=== PATIENT | male | born 1995 | race Caucasian/White ===

== ENCOUNTER 2020-04-28 20:33 | Inpatient (IN) | payer BC, OTHER ==
[2020-04-28 20:43] LABS: Glucose,Whole Blood 216 mg/dL (75-99)
[2020-04-28] MEDS ORDERED: SODIUM CHLORIDE 0.9% 1,000 ML IV STA (20:48)
--- NOTE | 2020-04-28 20:52 | ED ---
Recheck HPI - General Chief Complaint: Recheck/Abnormal Lab/Rx Stated Complaint: Diabetic,High Ketones Time Seen by Provider: 04/28/20 20:47 Source: patient, family Mode of arrival: wheelchair Limitations: no limitations - History of Present Illness Initial Comments: Patient is a 24-year-old poorly controlled type I diabetic presents emergency Department with a chief complaint of ketones in the urine. Patient states over the past 2 years he has poor control over his diabetes. Patient states over the last few days his blood sugar levels have a fluctuating but he has been rarely checking them as well. Patient states today he checked his blood sugar levels and they were well over 500. States he took 15 units of Humalog and 50 units of Lantus. Patient states he checked his urine for ketones and it was positive. Patient states he's been previously admitted for DKA. Does report nausea vomiting and some abdominal pain. Denies any night sweats or chills. - Related Data Home Medications Medication Instructions Recorded Confirmed Atorvastatin Calcium [Lipitor] 10 mg PO DAILY 04/28/20 04/28/20 FLUoxetine HCL [PROzac] 20 mg PO DAILY 04/28/20 04/28/20 Insulin Glargine,Hum.rec.anlog 50 unit SQ DAILY 04/28/20 04/28/20 [Lantus Solostar] busPIRone HCL 10 mg PO DAILY 04/28/20 04/28/20 Allergies Allergy/AdvReac Type Severity Reaction Status Date / Time No Known Allergies Allergy Verified 04/28/20 22:42 Review of Systems ROS Statement: Those systems with pertinent positive or pertinent negative responses have been documented in the HPI. ROS Other: All systems not noted in ROS Statement are negative. Past Medical History Past Medical History: Asthma, Diabetes Mellitus, Hyperlipidemia Additional Past Medical History / Comment(s): migraines, Type 1 DM History of Any Multi-Drug Resistant Organisms: None Reported Past Surgical History: Orthopedic Surgery Past Psychological History: No Psychological Hx Reported Smoking Status: Never smoker Past Alcohol Use History: Occasional Past Drug Use History: Marijuana General Exam Limitations: no limitations General appearance: alert, in no apparent distress Head exam: Present: atraumatic, normocephalic, normal inspection Eye exam: Present: normal appearance, PERRL, EOMI Pupils: Present: normal accommodation ENT exam: Present: normal exam, normal oropharynx, mucous membranes moist, TM's normal bilaterally, normal external ear exam Neck exam: Present: normal inspection, full ROM. Absent: tenderness Respiratory exam: Present: normal lung sounds bilaterally Cardiovascular Exam: Present: regular rate, normal rhythm, normal heart sounds GI/Abdominal exam: Present: soft. Absent: distended, tenderness, guarding Extremities exam: Present: normal inspection, full ROM, normal capillary refill. Absent: tenderness Back exam: Present: normal inspection, full ROM Neurological exam: Present: alert, oriented X3 Psychiatric exam: Present: normal affect, normal mood Skin exam: Present: warm, dry, intact, normal color Course Vital Signs 04/28/20 04/28/20 20:41 22:01 Temperature 98.5 F Pulse Rate 105 H 94 Respiratory 18 20 Rate Blood Pressure 122/78 109/70 O2 Sat by Pulse 99 99 Oximetry Medical Decision Making - Medical Decision Making Patient is a 24-year-old male presenting to emergency Department with a chief complaint of ketones in the urine. Positive acetone levels. Patient appears to be euglycemic DKA. Large anion gap. Patient will be admitted for further medical management. Case discussed with Admitting is Dr Ortiz - Lab Data Result diagrams: 04/28/20 21:02 04/28/20 21:02 Lab Results 04/28/20 04/28/20 04/28/20 Range/Units 20:42 21:02 21:02 WBC 9.4 (3.8-10.6) k/uL RBC 5.40 (4.30-5.90) m/uL Hgb 17.1 (13.0-17.5) gm/dL Hct 49.6 (39.0-53.0) % MCV 92.0 (80.0-100.0) fL MCH 31.8 (25.0-35.0) pg MCHC 34.5 (31.0-37.0) g/dL RDW 13.1 (11.5-15.5) % Plt Count 194 (150-450) k/uL Neutrophils % 70 % Lymphocytes % 21 % Monocytes % 6 % Eosinophils % 1 % Basophils % 1 % Neutrophils # 6.6 (1.3-7.7) k/uL Lymphocytes # 2.0 (1.0-4.8) k/uL Monocytes # 0.6 (0-1.0) k/uL Eosinophils # 0.1 (0-0.7) k/uL Basophils # 0.1 (0-0.2) k/uL VBG pH (7.31-7.41) VBG pCO2 (37-51) mmHg VBG HCO3 (24-28) mmol/L Sodium (137-145) mmol/L Potassium (3.5-5.1) mmol/L Chloride (98-107) mmol/L Carbon Dioxide (22-30) mmol/L Anion Gap mmol/L BUN (9-20) mg/dL Creatinine (0.66-1.25) mg/dL Est GFR (CKD-EPI)AfAm (>60 ml/min/1.73 sqM) Est GFR (CKD-EPI)NonAf (>60 ml/min/1.73 sqM) Glucose (74-99) mg/dL POC Glucose (mg/dL) 216 H (75-99) mg/dL POC Glu Coil Tester ID Fetterly, Bella Calcium (8.4-10.2) mg/dL Total Bilirubin (0.2-1.3) mg/dL AST (17-59) U/L ALT (4-49) U/L Alkaline Phosphatase (38-126) U/L Total Protein (6.3-8.2) g/dL Albumin (3.5-5.0) g/dL Urine Color Colorless Urine Appearance Clear (Clear) Urine pH 5.0 (5.0-8.0) Ur Specific [place] 1.025 (1.001-1.035) Urine Protein Negative (Negative) Urine Glucose (UA) 3+ H (Negative) Urine Ketones 4+ H (Negative) Urine Blood Negative (Negative) Urine Nitrite Negative (Negative) Urine Bilirubin Negative (Negative) Urine Urobilinogen <2.0 (<2.0) mg/dL Ur Leukocyte Esterase Trace H (Negative) Urine RBC <1 (0-5) /hpf Ur Squamous Epith Cells <1 (0-4) /hpf Acetone, Qual (Negative) 04/28/20 04/28/20 04/28/20 Range/Units 21:02 21:07 21:42 WBC (3.8-10.6) k/uL RBC (4.30-5.90) m/uL Hgb (13.0-17.5) gm/dL Hct (39.0-53.0) % MCV (80.0-100.0) fL MCH (25.0-35.0) pg MCHC (31.0-37.0) g/dL RDW (11.5-15.5) % Plt Count (150-450) k/uL Neutrophils % % Lymphocytes % % Monocytes % % Eosinophils % % Basophils % % Neutrophils # (1.3-7.7) k/uL Lymphocytes # (1.0-4.8) k/uL Monocytes # (0-1.0) k/uL Eosinophils # (0-0.7) k/uL Basophils # (0-0.2) k/uL VBG pH 7.27 L (7.31-7.41) VBG pCO2 25 L (37-51) mmHg VBG HCO3 11 L (24-28) mmol/L Sodium 136 L (137-145) mmol/L Potassium 4.2 (3.5-5.1) mmol/L Chloride 99 (98-107) mmol/L Carbon Dioxide 12 L (22-30) mmol/L Anion Gap 25 mmol/L BUN 15 (9-20) mg/dL Creatinine 0.82 (0.66-1.25) mg/dL Est GFR (CKD-EPI)AfAm >90 (>60 ml/min/1.73 sqM) Est GFR (CKD-EPI)NonAf >90 (>60 ml/min/1.73 sqM) Glucose 196 H (74-99) mg/dL POC Glucose (mg/dL) 171 H (75-99) mg/dL POC Glu Coil Tester ID Ebonie Escoto Calcium 10.3 H (8.4-10.2) mg/dL Total Bilirubin 0.8 (0.2-1.3) mg/dL AST 24 (17-59) U/L ALT 18 (4-49) U/L Alkaline Phosphatase 108 (38-126) U/L Total Protein 8.6 H (6.3-8.2) g/dL Albumin 5.5 H (3.5-5.0) g/dL Urine Color Urine Appearance (Clear) Urine pH (5.0-8.0) Ur Specific [place] (1.001-1.035) Urine Protein (Negative) Urine Glucose (UA) (Negative) Urine Ketones (Negative) Urine Blood (Negative) Urine Nitrite (Negative) Urine Bilirubin (Negative) Urine Urobilinogen (<2.0) mg/dL Ur Leukocyte Esterase (Negative) Urine RBC (0-5) /hpf Ur Squamous Epith Cells (0-4) /hpf Acetone, Qual Positive (Negative) 04/28/20 Range/Units 21:52 WBC (3.8-10.6) k/uL RBC (4.30-5.90) m/uL Hgb (13.0-17.5) gm/dL Hct (39.0-53.0) % MCV (80.0-100.0) fL MCH (25.0-35.0) pg MCHC (31.0-37.0) g/dL RDW (11.5-15.5) % Plt Count (150-450) k/uL Neutrophils % % Lymphocytes % % Monocytes % % Eosinophils % % Basophils % % Neutrophils # (1.3-7.7) k/uL Lymphocytes # (1.0-4.8) k/uL Monocytes # (0-1.0) k/uL Eosinophils # (0-0.7) k/uL Basophils # (0-0.2) k/uL VBG pH (7.31-7.41) VBG pCO2 (37-51) mmHg VBG HCO3 (24-28) mmol/L Sodium (137-145) mmol/L Potassium (3.5-5.1) mmol/L Chloride (98-107) mmol/L Carbon Dioxide (22-30) mmol/L Anion Gap mmol/L BUN (9-20) mg/dL Creatinine (0.66-1.25) mg/dL Est GFR (CKD-EPI)AfAm (>60 ml/min/1.73 sqM) Est GFR (CKD-EPI)NonAf (>60 ml/min/1.73 sqM) Glucose (74-99) mg/dL POC Glucose (mg/dL) 145 H (75-99) mg/dL POC Glu Coil Tester ID Ebonie Escoto Calcium (8.4-10.2) mg/dL Total Bilirubin (0.2-1.3) mg/dL AST (17-59) U/L ALT (4-49) U/L Alkaline Phosphatase (38-126) U/L Total Protein (6.3-8.2) g/dL Albumin (3.5-5.0) g/dL Urine Color Urine Appearance (Clear) Urine pH (5.0-8.0) Ur Specific [place] (1.001-1.035) Urine Protein (Negative) Urine Glucose (UA) (Negative) Urine Ketones (Negative) Urine Blood (Negative) Urine Nitrite (Negative) Urine Bilirubin (Negative) Urine Urobilinogen (<2.0) mg/dL Ur Leukocyte Esterase (Negative) Urine RBC (0-5) /hpf Ur Squamous Epith Cells (0-4) /hpf Acetone, Qual (Negative) Disposition Clinical Impression: DKA (diabetic ketoacidoses), Nausea & vomiting Disposition: [facility] Condition: Stable Is patient prescribed a controlled substance at d/c from ED?: No Time of Disposition: 22:15
[2020-04-28 21:09] LABS: Glucose,Whole Blood 171 mg/dL (75-99)
[2020-04-28 21:16] LABS: Basophils # (A) 0.1 k/uL (0-0.2); Basophils % (A) 1 %; Eosinophils # (A) 0.1 k/uL (0-0.7); Eosinophils % (A) 1 %; HCT 49.6 % (39.0-53.0); HGB 17.1 gm/dL (13.0-17.5); Lymphocytes % (A) 21 %; MCH 31.8 pg (25.0-35.0); MCHC 34.5 g/dL (31.0-37.0); Mean Platelet Volume 8.8; Monocytes # (A) 0.6 k/uL (0-1.0); Monocytes % (A) 6 %; Neutrophils # (A) 6.6 k/uL (1.3-7.7); Neutrophils % (A) 70 %; Platelet Count 194 k/uL (150-450); RDW 13.1 % (11.5-15.5); WBC 9.4 k/uL (3.8-10.6)
[2020-04-28 21:17] LABS: Appearance,Urine Clear (Clear); Bilirubin,Urine Negative (Negative); Blood,Urine Negative (Negative); Color,Urine Colorless; Glucose,Urine (UA) 3+ (Negative); Leukocyte Esterase,Urine Trace (Negative); Nitrite,Urine Negative (Negative); Protein,Urine Negative (Negative); RBC,Urine <1 /hpf (0-5); Specific Gravity,Urine 1.025 (1.001-1.035); Squamous Epithelial Cell,Urine <1 /hpf (0-4); Urobilinogen,Urine <2.0 mg/dL (<2.0)
[2020-04-28 21:28] LABS: Ketones,Urine 4+ (Negative)
[2020-04-28 21:30] LABS: ALT 18 U/L (4-49); AST 24 U/L (17-59); African American GFR (CKD) >90 (>60 ml/min/1.73 sqM); Albumin 5.5 g/dL (3.5-5.0); Alkaline Phosphatase 108 U/L (38-126); Anion Gap 25 mmol/L; Blood Urea Nitrogen 15 mg/dL (9-20); Calcium 10.3 mg/dL (8.4-10.2); Carbon Dioxide 12 mmol/L (22-30); Chloride 99 mmol/L (98-107); Glucose 196 mg/dL (74-99); Non-African American GFR(CKD) >90 (>60 ml/min/1.73 sqM); Potassium 4.2 mmol/L (3.5-5.1); Sodium 136 mmol/L (137-145); Total Bilirubin 0.8 mg/dL (0.2-1.3); Total Protein 8.6 g/dL (6.3-8.2)
[2020-04-28] MEDS ORDERED: INSULIN REGULAR 100 UNIT in SODIUM CHLORIDE 0.9% 100 ML IV SCH (21:30)
[2020-04-28] MEDS: SODIUM CHLORIDE 0.9% 1,000 ML IV SCH (21:48)
[2020-04-28 21:51] LABS: VBG PH 7.27 (7.31-7.41)
[2020-04-28 21:54] LABS: Glucose,Whole Blood 145 mg/dL (75-99)
[2020-04-28] MEDS: D5-0.45% NACL WITH KCL 20MEQ/L 1,000 ML IV SCH (21:57)
[2020-04-28] MEDS ORDERED: ONDANSETRON 4 MG/2 ML VIAL IVP STA (22:04)
[2020-04-28 22:59] LABS: Glucose,Whole Blood 122 mg/dL (75-99)
[2020-04-29 00:04] LABS: Glucose,Whole Blood 117 mg/dL (75-99)
[2020-04-29 01:07] LABS: African American GFR (CKD) >90 (>60 ml/min/1.73 sqM); Anion Gap 16 mmol/L; Blood Urea Nitrogen 13 mg/dL (9-20); Carbon Dioxide 15 mmol/L (22-30); Chloride 103 mmol/L (98-107); Glucose 118 mg/dL (74-99); Non-African American GFR(CKD) >90 (>60 ml/min/1.73 sqM); Phosphorus 2.8 mg/dL (2.5-4.5); Potassium 4.1 mmol/L (3.5-5.1); Sodium 134 mmol/L (137-145)
[2020-04-29 01:18] LABS: Glucose,Whole Blood 121 mg/dL (75-99)
[2020-04-29 02:05] LABS: Glucose,Whole Blood 107 mg/dL (75-99)
[2020-04-29 03:05] LABS: Glucose,Whole Blood 97 mg/dL (75-99)
[2020-04-29 03:38] LABS: Glucose,Whole Blood 116 mg/dL (75-99)
[2020-04-29] MEDS: SODIUM CHLORIDE 0.9% 1,000 ML IV SCH (03:40)
[2020-04-29 04:29] LABS: Glucose,Whole Blood 106 mg/dL (75-99)
[2020-04-29 04:31] LABS: African American GFR (CKD) >90 (>60 ml/min/1.73 sqM); Anion Gap 12 mmol/L; Blood Urea Nitrogen 12 mg/dL (9-20); Carbon Dioxide 18 mmol/L (22-30); Chloride 104 mmol/L (98-107); Glucose 109 mg/dL (74-99); Non-African American GFR(CKD) >90 (>60 ml/min/1.73 sqM); Phosphorus 3.3 mg/dL (2.5-4.5); Potassium 3.9 mmol/L (3.5-5.1); Sodium 134 mmol/L (137-145)
[2020-04-29] MEDS: D5-0.45% NACL WITH KCL 20MEQ/L 1,000 ML IV SCH ×2 (04:45→11:25)
[2020-04-29 05:39] LABS: Glucose,Whole Blood 87 mg/dL (75-99)
[2020-04-29 06:08] LABS: Glucose,Whole Blood 101 mg/dL (75-99)
[2020-04-29 06:59] LABS: Glucose,Whole Blood 85 mg/dL (75-99)
[2020-04-29] MEDS ORDERED: INSULIN DETEMIR (LEVEMIR) 100 UNIT/ML SYR SQ SCH ×2 (07:00→21:30)
[2020-04-29] MEDS: INSULIN ASPART (NovoLOG) 100 UNIT/ML VIAL SQ SCH ×4 (07:01→20:10)
[2020-04-29] MEDS ORDERED: busPIRone HCl 10 MG TAB PO SCH (11:00)
[2020-04-29] MEDS ORDERED: ATORVASTATIN 10 MG TAB PO SCH (11:00)
[2020-04-29] MEDS ORDERED: FLUoxetine HCL 20 MG CAP PO SCH (11:00)
[2020-04-29] MEDS ORDERED: ENOXAPARIN 40 MG/0.4 ML SYRINGE SQ SCH (11:00)
[2020-04-29 11:42] LABS: Glucose,Whole Blood 48 mg/dL (75-99)
[2020-04-29 11:42] LABS: Glucose,Whole Blood 48 mg/dL (75-99)
[2020-04-29 11:57] LABS: Glucose,Whole Blood 106 mg/dL (75-99)
[2020-04-29 13:01] VITALS: RESP 18
[2020-04-29] MEDS ORDERED: ACETAMINOPHEN TAB 325 MG TAB PO PRN (13:18)
[2020-04-29 13:49] VITALS: BMI 19.6
[2020-04-29 14:31] LABS: Hemoglobin A1C 11.4 % (4.0-6.0)
--- NOTE | 2020-04-29 16:42 | P.HPIM ---
History of Present Illness H&P Date: 04/29/20 Chief Complaint: Feeling unwell History of presenting complaint: This is a very pleasant 24-year-old patient of Dr. Bullard. Insulin-dependent diabetic diagnosed 10 years ago. Sugars sometimes to run high. Patient is currently home. Are from college because of the COVID situation. Patient yesterday was not feeling well somewhat sleepy. Sugars are running high. Patie nt did vomit twice yesterday. No cough or respiratory symptoms. No urinary symptoms. When checked her sugars there were running high and also positive for ketones. Patient presented to ER was found to be in diabetic ketoacidosis. Patient is put on IV fluids and insulin drip. This morning her sugars drop down. Patient was not hungry did not eat her breakfast. Was taken off the insulin drip. Overall he feels better this morning. Patient does take Lantus at home at night normally. Also take short-acting NovoLog. Review of systems: GEN.: Tired EYES: None HEENT: None NECK: None RESPIRATORY: None CARDIOVASCULAR: None GASTROINTESTINAL: None GENITOURINARY: None MUSCULOSKELETAL: None LYMPHATICS: None HEMATOLOGICAL: None PSYCHIATRY: None NEUROLOGICAL: None Past medical history to include: Diabetes mellitus type 1, anxiety, asthma Social history: Patient is to return [employer] for special education. No recreational drug smoking or alcohol. Normally stays in college currently living with his parents. Physical examination: VITAL SIGNS: 98.5, 105, 18, 122/78, 99% on room air GENERAL: [19.6, sitting up in bed, awake slightly tired. EYES: Pupils equal. Conjunctiva normal. HEENT: External appearance of nose and ears normal, oral cavity grossly normal. NECK: JVD not raised; masses not palpable. HEART: First and second heart sounds are normal; no edema. LUNGS: Respiratory rate normal; clear to auscultation. ABDOMEN: Soft, nontender, liver spleen not palpable, no masses palpable. PSYCH: Alert and oriented x3; mood and affect normal. NEUROLOGICAL: Cranial nerves grossly intact; no facial asymmetry, power and sensation grossly intact. LYMPHATICS: No lymph nodes palpable in the axilla and neck INVESTIGATIONS, reviewed in the clinical context: White count 9.4 hemoglobin 7.1 platelets 194 potassium 4.2 creatinine 0.82 bicarb 12 blood glucose 196 UA positive for ketone 4+, serum acetone positive Assessment: -Acute diabetic ketoacidosis Diabetes mellitus type 1 Assessment: Patient was started on IV fluids and IV insulin last night. This morning was given Levemir. Patient was not hungry did not eat his breakfast. Is going to eat his lunch. Discussed with the patient will follow his Accu-Cheks 2 this evening. Depending on her sugars will give him a dose this evening and decide from there. Question were answered. Lovenox for DVT prophylaxis. Past Medical History Past Medical History: Asthma, Diabetes Mellitus, Hyperlipidemia Additional Past Medical History / Comment(s): migraines, Type 1 DM History of Any Multi-Drug Resistant Organisms: None Reported Past Surgical History: Orthopedic Surgery Past Anesthesia/Blood Transfusion Reactions: No Reported Reaction Past Psychological History: No Psychological Hx Reported Smoking Status: Never smoker Past Alcohol Use History: Occasional Past Drug Use History: Marijuana - Past Family History Father History Unknown: Yes Mother History Unknown: Yes Medications and Allergies Home Medications Medication Instructions Recorded Confirmed Type Atorvastatin Calcium [Lipitor] 10 mg PO DAILY 04/28/20 04/28/20 History FLUoxetine HCL [PROzac] 20 mg PO DAILY 04/28/20 04/28/20 History busPIRone HCL 10 mg PO DAILY 04/28/20 04/28/20 History INSULIN ASPART (NovoLOG) [NovoLOG 0 unit SQ ACHS vial 04/29/20 Rx (formulary)] Insulin Glargine,Hum.rec.anlog 40 unit SQ HS #0 04/29/20 04/28/20 Rx [Lantus Solostar] Allergies Allergy/AdvReac Type Severity Reaction Status Date / Time No Known Allergies Allergy Verified 04/28/20 22:42 Physical Exam Vitals: Vital Signs Temp Pulse Pulse Resp BP BP Pulse Ox 04/29/20 08:00 98.2 F 89 16 122/74 99 04/29/20 04:00 98.1 F 85 14 101/59 98 04/28/20 23:13 98.4 F 97 16 114/81 98 04/28/20 22:01 94 20 109/70 99 04/28/20 20:41 98.5 F 105 H 18 122/78 99 Intake and Output 04/28/20 04/29/20 04/29/20 22:59 06:59 14:59 Intake Total 3.843 5.304 Output Total 1 Balance 3.843 4.304 Intake: Intake, IV Titration 3.843 5.304 Amount Insulin Regular 100 unit 3.843 5.304 In Sodium Chloride 0.9% 100 ml @ 0.1 UNITS/KG/HR 7.33 mls/hr IV [id number] [facility] Rx#:[id number] Output: Urine 1 Other: Voiding Method Toilet Weight 72.575 kg 67.5 kg Results CBC & Chem 7: 04/28/20 21:02 04/29/20 04:11 Labs: Abnormal Lab Results - Last 24 Hours (Table) 04/28/20 04/28/20 04/28/20 Range/Units 20:42 21:02 21:02 VBG pH (7.31-7.41) VBG pCO2 (37-51) mmHg VBG HCO3 (24-28) mmol/L Sodium 136 L (137-145) mmol/L Carbon Dioxide 12 L (22-30) mmol/L Creatinine (0.66-1.25) mg/dL Glucose 196 H (74-99) mg/dL POC Glucose (mg/dL) 216 H (75-99) mg/dL Calcium 10.3 H (8.4-10.2) mg/dL Total Protein 8.6 H (6.3-8.2) g/dL Albumin 5.5 H (3.5-5.0) g/dL Urine Glucose (UA) 3+ H (Negative) Urine Ketones 4+ H (Negative) Ur Leukocyte Esterase Trace H (Negative) 04/28/20 04/28/20 04/28/20 Range/Units 21:07 21:42 21:52 VBG pH 7.27 L (7.31-7.41) VBG pCO2 25 L (37-51) mmHg VBG HCO3 11 L (24-28) mmol/L Sodium (137-145) mmol/L Carbon Dioxide (22-30) mmol/L Creatinine (0.66-1.25) mg/dL Glucose (74-99) mg/dL POC Glucose (mg/dL) 171 H 145 H (75-99) mg/dL Calcium (8.4-10.2) mg/dL Total Protein (6.3-8.2) g/dL Albumin (3.5-5.0) g/dL Urine Glucose (UA) (Negative) Urine Ketones (Negative) Ur Leukocyte Esterase (Negative) 04/28/20 04/29/20 04/29/20 Range/Units 22:58 00:03 00:27 VBG pH (7.31-7.41) VBG pCO2 (37-51) mmHg VBG HCO3 (24-28) mmol/L Sodium 134 L (137-145) mmol/L Carbon Dioxide 15 L (22-30) mmol/L Creatinine 0.58 L (0.66-1.25) mg/dL Glucose 118 H (74-99) mg/dL POC Glucose (mg/dL) 122 H 117 H (75-99) mg/dL Calcium (8.4-10.2) mg/dL Total Protein (6.3-8.2) g/dL Albumin (3.5-5.0) g/dL Urine Glucose (UA) (Negative) Urine Ketones (Negative) Ur Leukocyte Esterase (Negative) 04/29/20 04/29/20 04/29/20 Range/Units 01:16 02:03 03:35 VBG pH (7.31-7.41) VBG pCO2 (37-51) mmHg VBG HCO3 (24-28) mmol/L Sodium (137-145) mmol/L Carbon Dioxide (22-30) mmol/L Creatinine (0.66-1.25) mg/dL Glucose (74-99) mg/dL POC Glucose (mg/dL) 121 H 107 H 116 H (75-99) mg/dL Calcium (8.4-10.2) mg/dL Total Protein (6.3-8.2) g/dL Albumin (3.5-5.0) g/dL Urine Glucose (UA) (Negative) Urine Ketones (Negative) Ur Leukocyte Esterase (Negative) 04/29/20 04/29/20 04/29/20 Range/Units 04:11 04:27 06:06 VBG pH (7.31-7.41) VBG pCO2 (37-51) mmHg VBG HCO3 (24-28) mmol/L Sodium 134 L (137-145) mmol/L Carbon Dioxide 18 L (22-30) mmol/L Creatinine 0.59 L (0.66-1.25) mg/dL Glucose 109 H (74-99) mg/dL POC Glucose (mg/dL) 106 H 101 H (75-99) mg/dL Calcium (8.4-10.2) mg/dL Total Protein (6.3-8.2) g/dL Albumin (3.5-5.0) g/dL Urine Glucose (UA) (Negative) Urine Ketones (Negative) Ur Leukocyte Esterase (Negative) Thrombosis Risk Factor Assmnt - Choose All That Apply Any of the Below Risk Factors Present?: No
[2020-04-29 16:59] LABS: Glucose,Whole Blood 59 mg/dL (75-99)
[2020-04-29 16:59] LABS: Glucose,Whole Blood 54 mg/dL (75-99)
[2020-04-29 17:19] LABS: Glucose,Whole Blood 83 mg/dL (75-99)
[2020-04-29 20:02] LABS: Glucose,Whole Blood 120 mg/dL (75-99)
[2020-04-29 20:04] VITALS: BP 137/88; PULSE 93; TEMP 98.8
[2020-04-30] MEDS ORDERED: INSULIN DETEMIR (LEVEMIR) 100 UNIT/ML SYR SQ SCH (21:00)
--- NOTE | 2020-04-30 23:10 | P.DS ---
Providers Date of admission: 04/28/20 22:08 Expected date of discharge: 04/29/20 Attending physician: Camilo Ortiz Primary care physician: Hubert Bullard [facility] Course: Chief Complaint: Feeling unwell History of presenting complaint: This is a very pleasant 24-year-old patient of Dr. Bullard. Insulin-dependent diabetic diagnosed 10 years ago. Sugars sometimes to run high. Patient is currently home. Are from college because of the COVID situation. Patient yesterday was not feeling well somewhat sleepy. Sugars are running high. Patient did vomit twice yesterday. No cough or respiratory symptoms. No urinary symptoms. When checked her sugars there were running high and also positive for ketones. Patient presented to ER was found to be in diabetic ketoacidosis. Patient is put on IV fluids and insulin drip. This morning her sugars drop down. Patient was not hungry did not eat her breakfast. Was taken off the insulin drip. Overall he feels better this morning. Patient does take Lantus at home at night normally. Also take short-acting NovoLog. Responded well. Starting a diet before discharge. Care was discussed with the patient. Follow up with endocrinology. Physical examination: VITAL SIGNS: 99.8, 93, 18, 137/88, 99% room air GENERAL: Sitting up, looking better EYES: Pupils equal. Conjunctiva normal. HEENT: External appearance of nose and ears normal, oral cavity grossly normal. NECK: JVD not raised; masses not palpable. HEART: First and second heart sounds are normal; no edema. LUNGS: Respiratory rate normal; clear to auscultation. ABDOMEN: Soft, nontender, liver spleen not palpable, no masses palpable. PSYCH: Alert and oriented x3; mood and affect normal. INVESTIGATIONS, reviewed in the clinical context: White count 9.4 hemoglobin 7.1 platelets 194 potassium 4.2 creatinine 0.82 bicarb 12 blood glucose 196 UA positive for ketone 4+, serum acetone positive Assessment: -Acute diabetic ketoacidosis Diabetes mellitus type 1 Disposition: Home Patient Condition at Discharge: Stable Plan - Discharge Summary New Discharge Prescriptions: New INSULIN ASPART (NovoLOG) [NovoLOG (formulary)] 0 unit SQ ACHS vial Continue Atorvastatin Calcium [Lipitor] 10 mg PO DAILY busPIRone HCL 10 mg PO DAILY FLUoxetine HCL [PROzac] 20 mg PO DAILY Changed Insulin Glargine,Hum.rec.anlog [Lantus Solostar] 40 unit SQ HS #0 Discontinued Insulin Glargine,Hum.rec.anlog [Lantus Solostar] 50 unit SQ DAILY Discharge Medication List Atorvastatin Calcium [Lipitor] 10 mg PO DAILY 04/28/20 [History] FLUoxetine HCL [PROzac] 20 mg PO DAILY 04/28/20 [History] busPIRone HCL 10 mg PO DAILY 04/28/20 [History] INSULIN ASPART (NovoLOG) [NovoLOG (formulary)] 0 unit SQ ACHS vial 04/29/20 [Rx] Insulin Glargine,Hum.rec.anlog [Lantus Solostar] 40 unit SQ HS #0 04/29/20 [Rx] Follow up Appointment(s)/Referral(s): Bryon Diaz MD [REFERRING] - 1 Week Hubert Bullard MD [Primary Care Provider] - 1-2 days Patient Instructions/Handouts: Diabetic Ketoacidosis (DC) Activity/Diet/Wound Care/Special Instructions: pt will go home after supper if ac are ok Discharge Disposition: HOME SELF-CARE
== END 2020-04-29 21:28 | disposition home or self-care (01) | DRG 639 ==
LOC: EC 20:33 → 3SCARD 22:08
PROVIDERS: ADMIT Hospitalist; ATTEND Hospitalist
DX: E10.10 Type 1 diabetes mellitus with ketoacidosis without coma (principal); Z11.59 Encounter for screening for other viral diseases; Z79.4 Long term (current) use of insulin; J45.909 Unspecified asthma, uncomplicated; E78.5 Hyperlipidemia, unspecified; G43.909 Migraine, unspecified, not intractable, without status migrainosus; F41.9 Anxiety disorder, unspecified; Z79.899 Other long term (current) drug therapy
CPT/HCPCS: 36415; 80051; 80053; 81001; 82009; 82565; 82803; 82947; 83036; 84100; 84520; 85025; 96361; 96374; 99285

== ENCOUNTER 2021-01-03 19:33 | Inpatient (IN) | payer BC ==
[2021-01-03 19:45] LABS: Glucose,Whole Blood 465 mg/dL (75-99)
[2021-01-03] MEDS ORDERED: SODIUM CHLORIDE 0.9% 1,000 ML IV STA ×2 (19:47→20:25)
[2021-01-03] MEDS ORDERED: KETOROLAC 15 MG/ML 1 ML VIAL IVP STA (19:47)
[2021-01-03 20:02] LABS: Basophils # (A) 0.1 k/uL (0-0.2); Basophils % (A) 0 %; Eosinophils # (A) 0.1 k/uL (0-0.7); Eosinophils % (A) 0 %; HCT 44.1 % (39.0-53.0); Lymphocytes # (A) 1.7 k/uL (1.0-4.8); Lymphocytes % (A) 7 %; MCV 88.1 fL (80.0-100.0); Mean Platelet Volume 8.7; Monocytes # (A) 1.5 k/uL (0-1.0); Monocytes % (A) 6 %; Neutrophils # (A) 21.8 k/uL (1.3-7.7); Neutrophils % (A) 86 %; Platelet Count 192 k/uL (150-450); RBC 5.01 m/uL (4.30-5.90); RDW 12.4 % (11.5-15.5); VBG PH 7.31 (7.31-7.41); WBC 25.4 k/uL (3.8-10.6)
[2021-01-03 20:12] LABS: ALT 13 U/L (4-49); AST 21 U/L (17-59); African American GFR (CKD) >90 (>60 ml/min/1.73 sqM); Albumin 4.5 g/dL (3.5-5.0); Alkaline Phosphatase 76 U/L (38-126); Amylase 67 U/L (30-110); Anion Gap 22 mmol/L; Blood Urea Nitrogen 20 mg/dL (9-20); Calcium 9.8 mg/dL (8.4-10.2); Carbon Dioxide 14 mmol/L (22-30); Chloride 99 mmol/L (98-107); Lipase 48 U/L (23-300); Non-African American GFR(CKD) >90 (>60 ml/min/1.73 sqM); Potassium 4.9 mmol/L (3.5-5.1); Sodium 135 mmol/L (137-145); Total Bilirubin 1.1 mg/dL (0.2-1.3); Total Protein 6.8 g/dL (6.3-8.2)
[2021-01-03 20:13] LABS: Appearance,Urine Clear (Clear); Bilirubin,Urine Negative (Negative); Blood,Urine Negative (Negative); Color,Urine Colorless; Glucose,Urine (UA) 4+ (Negative); Leukocyte Esterase,Urine Negative (Negative); Nitrite,Urine Negative (Negative); Protein,Urine Negative (Negative); Specific Gravity,Urine 1.027 (1.001-1.035); Urobilinogen,Urine <2.0 mg/dL (<2.0)
[2021-01-03 20:18] LABS: Ketones,Urine 4+ (Negative)
[2021-01-03 20:25] LABS: Glucose 520 mg/dL (74-99)
[2021-01-03 20:28] LABS: Prothrombin Time 10.8 sec (9.0-12.0)
--- NOTE | 2021-01-03 20:31 | ED ---
General Adult HPI - General Chief complaint: Recheck/Abnormal Lab/Rx Stated complaint: diabetic issue Time Seen by Provider: 01/03/21 19:42 Source: EMS Mode of arrival: EMS Limitations: no limitations - History of Present Illness Initial comments: Patient is a 25-year-old male, history of type 1 diabetes, presenting to the emergency department via EMS with complaints of abdominal pain and elevated glucose levels. Patient states he recently received an insulin pump and his sugars have been doing well until today, he has been vomiting a lot and having abdominal pain. He states the pain is in the middle of his abdomen. He denies any chest pain or shortness of breath. He states he never had this kind of abdominal pain with elevated glucose levels in the past. He denies history of abdominal surgeries. He denies any recent fever or chills. He denies any hematuria. He has no further complaints at this time. Patient did receive 4 mg of Zofran and the EMS prior to arrival. His vital signs are stable upon arrival. - Related Data Home Medications Medication Instructions Recorded Confirmed Atorvastatin Calcium [Lipitor] 10 mg PO DAILY 04/28/20 04/28/20 FLUoxetine HCL [PROzac] 20 mg PO DAILY 04/28/20 04/28/20 busPIRone HCL 10 mg PO DAILY 04/28/20 04/28/20 Previous Rx's Medication Instructions Recorded INSULIN ASPART (NovoLOG) [NovoLOG 0 unit SQ ACHS vial 04/29/20 (formulary)] Insulin Glargine,Hum.rec.anlog 40 unit SQ HS #0 04/29/20 [Lantus Solostar] Allergies Allergy/AdvReac Type Severity Reaction Status Date / Time No Known Allergies Allergy Verified 01/03/21 19:36 Review of Systems ROS Statement: Those systems with pertinent positive or pertinent negative responses have been documented in the HPI. ROS Other: All systems not noted in ROS Statement are negative. Past Medical History Past Medical History: Asthma, Diabetes Mellitus, Hyperlipidemia Additional Past Medical History / Comment(s): migraines, Type 1 DM History of Any Multi-Drug Resistant Organisms: None Reported Past Surgical History: Orthopedic Surgery Past Anesthesia/Blood Transfusion Reactions: No Reported Reaction Past Psychological History: No Psychological Hx Reported Smoking Status: Never smoker Past Alcohol Use History: Occasional Past Drug Use History: Marijuana - Past Family History Father History Unknown: Yes Mother History Unknown: Yes General Exam - General Exam Comments Initial Comments: GENERAL: Patient is well-developed and well-nourished. Patient is nontoxic and in moderate distress. HEAD: Atraumatic, normocephalic. EYES: Pupils equal round and reactive to light, extraocular movements intact, sclera anicteric, conjunctiva are normal. Eyelids were unremarkable. ENT: TMs normal, nares patent, oropharynx clear without exudates. Moist mucous membranes. NECK: Normal range of motion, supple without lymphadenopathy or JVD. LUNGS: Unlabored respirations. Breath sounds clear to auscultation bilaterally and equal. No wheezes rales or rhonchi. HEART: Regular rate and rhythm without murmurs, rubs or gallops. ABDOMEN: Soft, tender to palpation epigastric, mid abdomen region, he is guarding. normoactive bowel sounds. No masses appreciated. : Deferred MUSCULOSKELETAL: Normal extremities with adequate strength and normal range of motion, no pitting or edema. No clubbing or cyanosis. NEUROLOGICAL: Patient is alert and oriented x 3. Motor and sensory are also intact. Cranial nerves II through XII grossly intact. Symmetrical smile. Normal speech, normal gait. PSYCH: Normal mood, normal affect. SKIN: Warm, Dry, normal turgor, no rashes or lesions noted. Limitations: no limitations Course Vital Signs 01/03/21 19:36 Temperature 98.2 F Pulse Rate 78 Respiratory 18 Rate Blood Pressure 138/74 O2 Sat by Pulse 98 Oximetry Medical Decision Making - Medical Decision Making Patient is a 25-year-old male with history of type 1 diabetes presenting with vomiting, abdominal pain since this morning. He does have history DKA. He states he has a insulin pump with been doing well until today. Sugar upon arrival was 465. Labs reveal white count of 25.4, VBG shows pH is 7.3, bicarb 17, CO2 is 34. Gap 22, glucose 520, lactic acid 6.0. Urine shows 4+ ketones, 4+ glucose, acetone positive. Patient given 2 L fluid bolus in the ER. Patient will be admitted for DKA, DKA protocol ordered. Dr. Ortiz is accepting. Case discussed with Dr. Díaz. - Lab Data Result diagrams: 01/03/21 19:49 01/03/21 19:49 Lab Results 01/03/21 01/03/21 01/03/21 Range/Units 19:40 19:49 19:49 WBC 25.4 H (3.8-10.6) k/uL RBC 5.01 (4.30-5.90) m/uL Hgb 15.0 (13.0-17.5) gm/dL Hct 44.1 (39.0-53.0) % MCV 88.1 (80.0-100.0) fL MCH 30.0 (25.0-35.0) pg MCHC 34.0 (31.0-37.0) g/dL RDW 12.4 (11.5-15.5) % Plt Count 192 (150-450) k/uL MPV 8.7 Neutrophils % 86 % Lymphocytes % 7 % Monocytes % 6 % Eosinophils % 0 % Basophils % 0 % Neutrophils # 21.8 H (1.3-7.7) k/uL Lymphocytes # 1.7 (1.0-4.8) k/uL Monocytes # 1.5 H (0-1.0) k/uL Eosinophils # 0.1 (0-0.7) k/uL Basophils # 0.1 (0-0.2) k/uL PT 10.8 (9.0-12.0) sec INR 1.0 (<1.2) APTT 21.0 L (22.0-30.0) sec VBG pH (7.31-7.41) VBG pCO2 (37-51) mmHg VBG HCO3 (24-28) mmol/L Sodium (137-145) mmol/L Potassium (3.5-5.1) mmol/L Chloride (98-107) mmol/L Carbon Dioxide (22-30) mmol/L Anion Gap mmol/L BUN (9-20) mg/dL Creatinine (0.66-1.25) mg/dL Est GFR (CKD-EPI)AfAm (>60 ml/min/1.73 sqM) Est GFR (CKD-EPI)NonAf (>60 ml/min/1.73 sqM) Glucose (74-99) mg/dL POC Glucose (mg/dL) 465 H (75-99) mg/dL POC Glu Social And Human Services Assistant ID Vince Rodriguezna Plasma Lactic Acid Lupillo (0.7-2.0) mmol/L Calcium (8.4-10.2) mg/dL Total Bilirubin (0.2-1.3) mg/dL AST (17-59) U/L ALT (4-49) U/L Alkaline Phosphatase (38-126) U/L Total Protein (6.3-8.2) g/dL Albumin (3.5-5.0) g/dL Amylase (30-110) U/L Lipase (23-300) U/L Urine Color Urine Appearance (Clear) Urine pH (5.0-8.0) Ur Specific [place] (1.001-1.035) Urine Protein (Negative) Urine Glucose (UA) (Negative) Urine Ketones (Negative) Urine Blood (Negative) Urine Nitrite (Negative) Urine Bilirubin (Negative) Urine Urobilinogen (<2.0) mg/dL Ur Leukocyte Esterase (Negative) Acetone, Qual (Negative) 01/03/21 01/03/21 01/03/21 Range/Units 19:49 19:49 19:49 WBC (3.8-10.6) k/uL RBC (4.30-5.90) m/uL Hgb (13.0-17.5) gm/dL Hct (39.0-53.0) % MCV (80.0-100.0) fL MCH (25.0-35.0) pg MCHC (31.0-37.0) g/dL RDW (11.5-15.5) % Plt Count (150-450) k/uL MPV Neutrophils % % Lymphocytes % % Monocytes % % Eosinophils % % Basophils % % Neutrophils # (1.3-7.7) k/uL Lymphocytes # (1.0-4.8) k/uL Monocytes # (0-1.0) k/uL Eosinophils # (0-0.7) k/uL Basophils # (0-0.2) k/uL PT (9.0-12.0) sec INR (<1.2) APTT (22.0-30.0) sec VBG pH 7.31 (7.31-7.41) VBG pCO2 34 L (37-51) mmHg VBG HCO3 17 L (24-28) mmol/L Sodium 135 L (137-145) mmol/L Potassium 4.9 (3.5-5.1) mmol/L Chloride 99 (98-107) mmol/L Carbon Dioxide 14 L (22-30) mmol/L Anion Gap 22 mmol/L BUN 20 (9-20) mg/dL Creatinine 0.78 (0.66-1.25) mg/dL Est GFR (CKD-EPI)AfAm >90 (>60 ml/min/1.73 sqM) Est GFR (CKD-EPI)NonAf >90 (>60 ml/min/1.73 sqM) Glucose 520 H* (74-99) mg/dL POC Glucose (mg/dL) (75-99) mg/dL POC Glu Social And Human Services Assistant ID Plasma Lactic Acid Lupillo 6.0 H* (0.7-2.0) mmol/L Calcium 9.8 (8.4-10.2) mg/dL Total Bilirubin 1.1 (0.2-1.3) mg/dL AST 21 (17-59) U/L ALT 13 (4-49) U/L Alkaline Phosphatase 76 (38-126) U/L Total Protein 6.8 (6.3-8.2) g/dL Albumin 4.5 (3.5-5.0) g/dL Amylase 67 (30-110) U/L Lipase 48 (23-300) U/L Urine Color Urine Appearance (Clear) Urine pH (5.0-8.0) Ur Specific [place] (1.001-1.035) Urine Protein (Negative) Urine Glucose (UA) (Negative) Urine Ketones (Negative) Urine Blood (Negative) Urine Nitrite (Negative) Urine Bilirubin (Negative) Urine Urobilinogen (<2.0) mg/dL Ur Leukocyte Esterase (Negative) Acetone, Qual Positive (Negative) 01/03/21 Range/Units 19:55 WBC (3.8-10.6) k/uL RBC (4.30-5.90) m/uL Hgb (13.0-17.5) gm/dL Hct (39.0-53.0) % MCV (80.0-100.0) fL MCH (25.0-35.0) pg MCHC (31.0-37.0) g/dL RDW (11.5-15.5) % Plt Count (150-450) k/uL MPV Neutrophils % % Lymphocytes % % Monocytes % % Eosinophils % % Basophils % % Neutrophils # (1.3-7.7) k/uL Lymphocytes # (1.0-4.8) k/uL Monocytes # (0-1.0) k/uL Eosinophils # (0-0.7) k/uL Basophils # (0-0.2) k/uL PT (9.0-12.0) sec INR (<1.2) APTT (22.0-30.0) sec VBG pH (7.31-7.41) VBG pCO2 (37-51) mmHg VBG HCO3 (24-28) mmol/L Sodium (137-145) mmol/L Potassium (3.5-5.1) mmol/L Chloride (98-107) mmol/L Carbon Dioxide (22-30) mmol/L Anion Gap mmol/L BUN (9-20) mg/dL Creatinine (0.66-1.25) mg/dL Est GFR (CKD-EPI)AfAm (>60 ml/min/1.73 sqM) Est GFR (CKD-EPI)NonAf (>60 ml/min/1.73 sqM) Glucose (74-99) mg/dL POC Glucose (mg/dL) (75-99) mg/dL POC Glu Social And Human Services Assistant ID Plasma Lactic Acid Lupillo (0.7-2.0) mmol/L Calcium (8.4-10.2) mg/dL Total Bilirubin (0.2-1.3) mg/dL AST (17-59) U/L ALT (4-49) U/L Alkaline Phosphatase (38-126) U/L Total Protein (6.3-8.2) g/dL Albumin (3.5-5.0) g/dL Amylase (30-110) U/L Lipase (23-300) U/L Urine Color Colorless Urine Appearance Clear (Clear) Urine pH 5.0 (5.0-8.0) Ur Specific [place] 1.027 (1.001-1.035) Urine Protein Negative (Negative) Urine Glucose (UA) 4+ H (Negative) Urine Ketones 4+ H (Negative) Urine Blood Negative (Negative) Urine Nitrite Negative (Negative) Urine Bilirubin Negative (Negative) Urine Urobilinogen <2.0 (<2.0) mg/dL Ur Leukocyte Esterase Negative (Negative) Acetone, Qual (Negative) Critical Care Time Critical Care Time: Yes Total Critical Care Time: 35 (Type I diabetic, blood glucose 500 upon arrival, lactic acid 6.0. Patient started on insulin drip, admitted for DKA.) Disposition Clinical Impression: DKA (diabetic ketoacidoses), Nausea & vomiting Disposition: ADMITTED IP TO THIS HOSP Condition: Stable Referrals: Hubert Bullard MD [Primary Care Provider] - 1-2 days Decision Date: 01/03/21 Decision Time: 21:01
--- NOTE | 2021-01-03 20:41 | CT ---
EXAMINATION TYPE: CT abdomen pelvis w con DATE OF EXAM: 01/03/2021 COMPARISON: 05/21/2011 HISTORY: Abdominal pain, nausea and vomiting. CT DLP: 660 mGycm Automated exposure control for dose reduction was used. CONTRAST: Performed with IV Contrast, patient injected with 100ml mL of Isovue 300. Lung bases are clear. There is no pleural effusion. Heart size is normal. There is no pericardial eff usion. Liver spleen stomach pancreas gallbladder appear normal. The bile ducts are not dilated. There is mild hydronephrosis. The delayed images however show fairly normal renal excretion. Ureters are not dilated. There is no retroperitoneal adenopathy. Bladder distends smoothly. There is no ingui nal hernia. There is tiny amount of free fluid in the pelvis. There is no evidence of a pelvic mass. Appendix is posterior and appears normal. There is no mesenteric edema. There is no ascites or free a ir. There is no bowel obstruction. The lumbar vertebra have normal spacing and alignment. The posterior elements are intact. There is no compression fracture. The bony pelvis is intact. Hip joints are intact. IMPRESSION: Negative CT scan abdomen and pelvis. Normal appendix.
[2021-01-03] MEDS ORDERED: INSULIN REGULAR 100 UNIT in SODIUM CHLORIDE 0.9% 100 ML IV SCH (21:00)
[2021-01-03 22:01] LABS: Glucose,Whole Blood 421 mg/dL (75-99)
[2021-01-03 23:03] LABS: Glucose,Whole Blood 326 mg/dL (75-99)
[2021-01-03] MEDS: SODIUM CHLORIDE 0.9% 1,000 ML IV SCH (23:03)
[2021-01-04 00:04] LABS: Glucose,Whole Blood 360 mg/dL (75-99)
[2021-01-04 01:01] LABS: Glucose,Whole Blood 284 mg/dL (75-99)
[2021-01-04 01:41] LABS: African American GFR (CKD) >90 (>60 ml/min/1.73 sqM); Anion Gap 8 mmol/L; Blood Urea Nitrogen 20 mg/dL (9-20); Carbon Dioxide 23 mmol/L (22-30); Chloride 99 mmol/L (98-107); Glucose 325 mg/dL (74-99); Non-African American GFR(CKD) >90 (>60 ml/min/1.73 sqM); Phosphorus 2.6 mg/dL (2.5-4.5); Potassium 4.3 mmol/L (3.5-5.1); Sodium 130 mmol/L (137-145)
[2021-01-04 02:00] LABS: Glucose,Whole Blood 241 mg/dL (75-99)
[2021-01-04] MEDS: SODIUM CHLORIDE 0.9% 1,000 ML IV SCH (02:38)
[2021-01-04] MEDS: DEXTROSE 5%-0.45% NACL 1,000 ML with POTASSIUM CHLORIDE 20 MEQ IV SCH ×4 (03:00→10:48)
[2021-01-04 03:03] LABS: Glucose,Whole Blood 193 mg/dL (75-99)
[2021-01-04 04:05] LABS: Glucose,Whole Blood 204 mg/dL (75-99)
[2021-01-04 05:02] LABS: African American GFR (CKD) >90 (>60 ml/min/1.73 sqM); Anion Gap 8 mmol/L; Blood Urea Nitrogen 18 mg/dL (9-20); Carbon Dioxide 22 mmol/L (22-30); Chloride 105 mmol/L (98-107); Glucose 181 mg/dL (74-99); Non-African American GFR(CKD) >90 (>60 ml/min/1.73 sqM); Phosphorus 2.2 mg/dL (2.5-4.5); Potassium 4.1 mmol/L (3.5-5.1); Sodium 135 mmol/L (137-145)
[2021-01-04 05:16] LABS: Glucose,Whole Blood 145 mg/dL (75-99)
[2021-01-04 06:07] LABS: Glucose,Whole Blood 108 mg/dL (75-99)
[2021-01-04] MEDS ORDERED: INSULIN DETEMIR (LEVEMIR) 100 UNIT/ML SYR SQ SCH (07:00)
[2021-01-04] MEDS ORDERED: INSULIN NPH 300 UNIT/3 ML VIAL SQ ONE (07:00)
[2021-01-04 07:01] LABS: Glucose,Whole Blood 99 mg/dL (75-99)
[2021-01-04] MEDS: INSULIN ASPART (NovoLOG) 100 UNIT/ML VIAL SQ SCH ×6 (10:47→16:58)
[2021-01-04] MEDS ORDERED: D5-0.45% NACL WITH KCL 20MEQ/L 1,000 ML IV SCH (11:00)
[2021-01-04 11:08] VITALS: RESP 20
[2021-01-04 12:22] LABS: Glucose,Whole Blood 142 mg/dL (75-99)
[2021-01-04 14:33] VITALS: BMI 22.3
[2021-01-04 16:57] LABS: Glucose,Whole Blood 169 mg/dL (75-99)
[2021-01-04 17:10] VITALS: BP 152/71; PULSE 100; TEMP 98.8
[2021-01-04] MEDS ORDERED: Insulin Aspart (For Pump) 100 UNIT/ML VIAL SQ-PUMP SCH (17:30)
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
== END 2021-01-04 17:24 | disposition home or self-care (01) | DRG 919 ==
LOC: EC 19:33 → 3SCARD 20:48
PROVIDERS: ADMIT Hospitalist; ATTEND Hospitalist
DX: T85.694A Other mechanical complication of insulin pump, initial encounter (principal); E10.10 Type 1 diabetes mellitus with ketoacidosis without coma; E78.5 Hyperlipidemia, unspecified; Z79.4 Long term (current) use of insulin; Z20.822 Contact with and (suspected) exposure to COVID-19; E86.0 Dehydration; F41.9 Anxiety disorder, unspecified; J45.909 Unspecified asthma, uncomplicated; Z96.41 Presence of insulin pump (external) (internal); Z79.899 Other long term (current) drug therapy; Z86.69 Personal history of other diseases of the nervous system and sense organs
CPT/HCPCS: 36415; 74177; 80051; 80053; 81003; 82009; 82150; 82565; 82803; 82947; 83605; 83690; 84100; 84520; 85025; 85610; 85730; 87635; 96361; 96374; 99291

== ENCOUNTER → 2021-01-06 | Outpatient (CLI) | payer BC ==
--- NOTE | 2021-01-06 16:10 | US ---
EXAMINATION TYPE: US thyroid st tissue head/neck DATE OF EXAM: 01/06/2021 COMPARISON: NONE CLINICAL HISTORY: 25-year-old male R59.1 LYMPHADENOPATHY. TECHNIQUE: [employer] Aide notes: Patient has tender palpable area just under left ear. Scanning was perf ormed over palpable area under left ear. FINDINGS: THIRD LOADER NOTES: There is a hypoechoic area located within parotid gland measuring 1.5 x 0.9 x 0.9 cm with some vascularity. IMPRESSION: Hypoechoic, vascular 1.5 x 0.9 cm mass at the patient's left sided palpable site located within the p arotid gland. Some differential considerations include lymphadenitis, schwannoma, and salivary gland tumor. If lymphadenopathy is suspected, recommend follow-up ultrasound (such as in 4-6 weeks) after a ny potential treatment.
== END ==
LOC: RADUSWWP 15:14
PROVIDERS: ATTEND Pediatrics
DX: R51.9 Headache, unspecified (principal)
CPT/HCPCS: 76536